=== PATIENT | male | born 1980 | race Caucasian/White ===

== ENCOUNTER 2018-07-14 19:50 | Emergency (ER) | payer BC ==
[2018-07-14 20:05] VITALS: BP 145/90; PULSE 86; TEMP 98.2; BMI 32.8
[2018-07-14 20:20] LABS: EPITHELIAL CELLS FEW /hpf
[2018-07-14] MEDS ORDERED: SODIUM CHLORIDE 1,000 ML IV ONE (20:36)
[2018-07-14] MEDS ORDERED: KETOROLAC TROMETHAMINE 30 MG/1 ML VIAL IVPUSH ONE (20:36)
[2018-07-14] MEDS ORDERED: KETOROLAC TROMETHAMINE 30 MG/1 ML VIAL ONE (20:50)
[2018-07-14 21:39] LABS: ALBUMIN 4.4 g/dl (3.4-5.0); BILIRUBIN,TOTAL 1.5 mg/dl (0.2-1); CALCIUM 9.4 mg/dl (8.5-10); CREATININE 1.1 mg/dl (0.55-1.3); POTASSIUM 3.8 mmol/L (3.5-5.1); TOT PROT 7.6 g/dl (6.4-8.2)
--- NOTE | 2018-07-14 21:52 | PDOC ---
Documentation entered by Yony Arellano SCRIBE, acting as scribe for Tania Marina MD. Tania Marina MD: This documentation has been prepared by the Eileen falk Andrys, SCRIBE, under my direction and personally reviewed by me in its entirety. I confirm that the documentation accurately reflects all work, treatment, procedures, and medical decision making performed by me. History of Present Illness - General Chief Complaint: Back Pain Stated Complaint: RIGHT LOWER BACK PAIN Time Seen by Provider: 07/14/18 20:35 History Source: Patient Exam Limitations: No Limitations - History of Present Illness Initial Comments: 07/14/18 20:48 The patient is a 37 year old male with no significant past medical history who presents to the ED with right flank pain for several days. Patient states he was at work when he developed right sided flank pain. Patient states his right flank pain is intermittent and radiates to his right lower quadrant. Patient describes the pain as uncomfortable and states it is worsened with stretching. Denies fever or chills. Denies any other symptoms. PAST MEDICAL HISTORY: no significant history PAST SURGICAL HISTORY: no significant history FAMILY HISTORY: no pertinent history SOCIAL HISTORY: Pt lives with family and is employed. MEDICATIONS: reviewed ALLERGIES: As per nursing notes General: No fevers or chills, no weakness, no weight loss HEENT: No change in vision. No sore throat,. No ear pain Cardiovascular: No chest pain or shortness of breath Respiratory:No cough, or wheezing. Gastrointestinal: + abdominal pain. no nausea, vomiting, diarrhea or constipation, No rectal bleeding Genitourinary: + flank pain. No dysuria, hematuria, or frequency Musculoskeletal: No joint or muscle pain or swelling Neurologic: No headache, vertigo, dizziness or loss of consciousness Psychiatric: nor depression Skin: No rashes or easy bruising Endocrine: no increased thirst or abnormal weight change Allergic: no skin or latex allergy All other systems reviewed and normal GENERAL: The patient is awake, alert, and fully oriented, in no acute distress. HEAD: Normal with no signs of trauma. EYES: Pupils equal, round and reactive to light, extraocular movements intact, sclera anicteric, conjunctiva clear. EXTREMITIES: Normal range of motion, no edema. ABDOMEN: Nontender to palpation. BACK: + mild right CVA and flank discomfort on palpation. NEUROLOGICAL: Normal speech, normal gait. PSYCH: Normal mood, normal affect. SKIN: Warm, Dry, normal turgor, no rashes or lesions noted. 07/14/18 22:10 Reevaluation patient feels better with Toradol. Patient's blood work was unremarkable had a normal CBC. The only abnormality was a mildly elevated bilirubin of 1.5 otherwise normal. Patient's CAT scan was negative for any acute pathology. Patient discharged home given copies of blood work and CAT scan will follow-up with his primary care doctor. You given to patient's and sent to his pharmacy Past History - Past Medical History Allergies/Adverse Reactions: Allergies Allergy/AdvReac Type Severity Reaction Status Date / Time No Known Allergies Allergy Verified 07/14/18 19:56 Home Medications: Ambulatory Orders Cyclobenzaprine HCl [Flexeril -] 10 mg PO ONCE PRN 07/14/18 Cyclobenzaprine HCl [Flexeril 10 mg] 10 mg PO BID PRN #60 tablet 07/14/18 Naproxen 500 mg PO BID #20 tablet 07/14/18 Omeprazole 20 mg PO DAILY 07/14/18 COPD: No GI Disorders: Yes (ACID REFLUX) - Suicide/Smoking/Psychosocial Hx Smoking History: Never smoked Hx Alcohol Use: Yes (SOCIAL) Drug/Substance Use Hx: No Substance Use Type: None *Physical Exam - Vital Signs Last Vital Signs Temp Pulse Resp BP Pulse Ox 98.2 F 86 16 145/90 99 07/14/18 19:51 07/14/18 19:51 07/14/18 19:51 07/14/18 19:51 07/14/18 19:51 ED Treatment Course - LABORATORY CBC & Chemistry Diagram: 07/14/18 21:00 07/14/18 21:00 - ADDITIONAL ORDERS Additional order review: Laboratory Results 07/14/18 20:00 Urine Color Yellow Urine Appearance Clear Urine pH 6.0 Urine Protein Negative Urine Glucose (UA) Negative Urine Ketones Negative Urine Blood Trace-intact Urine Nitrite Negative Urine Bilirubin Negative Urine Urobilinogen 1.0 Ur Leukocyte Esterase Negative Urine RBC 0-2 Ur Transition Epith Cell Few - RADIOLOGY Radiology Studies Ordered: Category Date Time Status SPIRAL- RENAL-STONE CT [CT] Stat CT Scan 07/14/18 20:35 Taken - Medications Given in the ED: ED Medications Discontinued Medications Generic Name Dose Route Start Last Admin Trade Name Zoë PRN Reason Stop Dose Admin Sodium Chloride 1,000 mls @ 1,000 mls/hr 07/14/18 20:36 07/14/18 21:00 Normal Saline - IV 07/14/18 21:35 1,000 mls/hr .Q1H ONE Administration Ketorolac Tromethamine 30 mg 07/14/18 20:36 07/14/18 21:02 Toradol Injection - IVPUSH 07/14/18 20:37 30 mg ONCE ONE Administration *DC/Admit/Observation/Transfer Diagnosis at time of Disposition: Back pain Qualifiers: Back pain location: back pain in unspecified location Chronicity: acute Back pain laterality: right Qualified Code(s): M54.9 - Dorsalgia, unspecified - Discharge Dispostion Disposition: HOME Condition at time of disposition: Good Decision to Admit order: No - Referrals Referrals: Jose Johnson [Primary Care Provider] - - Patient Instructions Additional Instructions: For the pain take naproxen 1 tablet twice a day with food don't take on an empty stomach. In addition to that you can also take a muscle relaxant Flexeril one tablet as often as 3 times a day. The Flexeril may make you drowsy so tried limited to the nighttime hours if you have to work drive or do anything that requires concentration. Return to the emergency department immediately with ANY new, persistent or worsening symptoms. Continue any medications as previously prescribed by your physician. You should follow up with your primary doctor as soon as possible regarding today's emergency department visit. . Please make sure your doctor reviews the results of your emergency evaluation. Thank you for coming to the Emergency Department today for your care. It was a pleasure to see you today. Please note that your evaluation is INCOMPLETE until you follow-up with your doctor. - Post Discharge Activity
[2018-07-14 21:59] LABS: BASO % 0.3 % (0-2.0); EOS % 1.9 % (0-4.5); HEMATOCRIT 46.8 % (35.4-49); HEMOGLOBIN 16.2 GM/dL (11.7-16.9); LYMPH % 30.3 % (8-40); MCH 29.7 pg (25.7-33.7); MCHC 34.6 g/dl (32.0-35.9); MEAN CELL VOLUME 85.9 fl (80-96); MEAN PLT VOLUME 8.8 fl (7.5-11.1); MONO % 7.2 % (3.8-10.2); NEUT % 60.3 % (42.8-82.8); PLATELET COUNT 271 K/MM3 (134-434); RBC 5.44 M/mm3 (4.00-5.60); RDW 14.2 % (11.9-15.9); WHITE BLOOD COUNT 9.8 K/mm3 (4.0-10.0)
[2018-07-14] MEDS ORDERED: CYCLOBENZAPRINE HCL 10 MG TABLET (FP) PO ONE (22:09)
[2018-07-14] MEDS ORDERED: CYCLOBENZAPRINE HCL 10 MG TABLET (FP) ONE (22:22)
== END 2018-07-14 22:46 | disposition home or self-care (01) ==
LOC: FER 19:50
PROC: 3E0333Z Introduction of Anti-inflammatory into Peripheral Vein, Percutaneous Approach (ICD-10-PCS; principal; 2018-07-14)
PROC: 3E0337Z Introduction of Electrolytic and Water Balance Substance into Peripheral Vein, Percutaneous Approach (ICD-10-PCS; 2018-07-14)
DX: M54.9 Dorsalgia, unspecified (principal); K21.9 Gastro-esophageal reflux disease without esophagitis
CPT/HCPCS: 36415; 74176-TC; 80053; 81003; 81015; 84443; 85025; 99283-25; J7030